=== PATIENT | female | born 1980 | race American Indian/Alaskan Native ===

== ENCOUNTER 2018-10-10 13:37 | Emergency (ER) | payer BC, MEDICAID, OTHER ==
--- NOTE | 2018-10-10 14:04 | Emergency Department Report ---
ED General Adult HPI - General Chief complaint: Upper Respiratory Infection Stated complaint: CHEST PAIN/HEADACHE Time Seen by Provider: 10/10/18 13:50 Source: patient Mode of arrival: Ambulatory Limitations: No Limitations - History of Present Illness Initial comments: Patient presents to the emergency department with chief complaint of cough 2 days that is nonproductive in nature. Patient states that she is having rib pain when coughing. Patient denies fever at home. -: Gradual Radiation: non-radiation Severity scale (0 -10): 4 Quality: aching Consistency: constant Improves with: none Worsens with: none Associated Symptoms: denies other symptoms Treatments Prior to Arrival: none - Related Data Home Medications Medication Instructions Recorded Confirmed Last Taken Triamter/Hctz 37.5-25 mg 1 tab PO QDAY 01/29/14 11/16/14 01/29/14 07:00 [Maxzide-25] amLODIPine [Norvasc] 2.5 mg PO QDAY 01/29/14 11/17/14 01/29/14 07:00 Labetalol [Normodyne] 200 mg PO BID 11/16/14 11/16/14 11/15/14 20:00 1 TAB Vit No.126/Iron/Folic 1 each PO QDAY 11/16/14 11/16/14 11/15/14 08:00 [Classic Tablet] 1 TAB glyBURIDE [Diabeta] 2.5 mg PO QHS 11/16/14 11/16/14 11/15/14 20:00 1 TAB Previous Rx's Medication Instructions Recorded Last Taken Type Cyclobenzaprine HCl [Flexeril] 10 mg PO Q8H PRN #21 tablet 01/29/14 Unknown Rx Ibuprofen [Motrin 800 MG tab] 800 mg PO Q8H PRN #21 tablet 01/29/14 Unknown Rx Ibuprofen [Motrin 800 MG tab] 800 mg PO TID PRN #21 tablet 04/22/14 Unknown Rx Promethazine [Phenergan] 25 mg PO Q6H PRN #15 tablet 04/22/14 Unknown Rx Acetaminophen/Codeine [Tylenol 1 tab PO Q6H PRN #30 tab 11/17/14 Unknown Rx /Codeine # 3 tab] Ferrous Sulfate [Feosol 325 MG tab] 325 mg PO BID #120 tablet 11/17/14 Unknown Rx Ibuprofen [Motrin 600 MG tab] 800 mg PO Q8H PRN #30 tablet 11/17/14 Unknown Rx Labetalol HCl [Trandate TAB] 300 mg PO BID #60 tablet 11/17/14 Unknown Rx Labetalol [Normodyne TAB] 300 mg PO BID PRN #60 tablet 11/17/14 Unknown Rx ALBUTEROL Inhaler(NF) [VENTOLIN 2 puff IH Q4HR PRN #1 inha 10/10/18 Unknown Rx Inhaler(NF)] guaiFENesin/CODEINE [Robitussin AC] 5 ml PO Q12HR PRN #180 oral.liqd 10/10/18 Unknown Rx predniSONE [Deltasone] 20 mg PO QDAY #15 tab 10/10/18 Unknown Rx traMADol [Ultram] 50 mg PO Q6HR PRN #20 tablet 10/10/18 Unknown Rx Allergies Allergy/AdvReac Type Severity Reaction Status Date / Time No Known Allergies Allergy Verified 04/21/14 20:07 ED Review of Systems ROS: Stated complaint: CHEST PAIN/HEADACHE Other details as noted in HPI Constitutional: denies: chills, fever Eyes: denies: eye pain, eye discharge, vision change ENT: denies: ear pain, throat pain Respiratory: cough. denies: shortness of breath, wheezing Cardiovascular: denies: chest pain, palpitations Endocrine: no symptoms reported Gastrointestinal: denies: abdominal pain, nausea, diarrhea Genitourinary: denies: urgency, dysuria, discharge Musculoskeletal: denies: back pain, joint swelling, arthralgia Skin: denies: rash, lesions Neurological: denies: headache, weakness, paresthesias Psychiatric: denies: anxiety, depression Hematological/Lymphatic: denies: easy bleeding, easy bruising ED Past Medical Hx - Past Medical History Hx Hypertension: Yes Hx Congestive Heart Failure: No Hx Diabetes: Yes Hx Deep Vein Thrombosis: No Hx Renal Disease: No Hx Sickle Cell Disease: No Hx Seizures: No Hx Asthma: No Hx COPD: No Hx HIV: No - Surgical History Past Surgical History?: No - Social History Smoking Status: Never Smoker Substance Use Type: None - Medications Home Medications: Home Medications Medication Instructions Recorded Confirmed Last Taken Type Cyclobenzaprine HCl [Flexeril] 10 mg PO Q8H PRN #21 tablet 01/29/14 11/17/14 Unknown Rx Ibuprofen [Motrin 800 MG tab] 800 mg PO Q8H PRN #21 tablet 01/29/14 11/16/14 Unknown Rx Triamter/Hctz 37.5-25 mg 1 tab PO QDAY 01/29/14 11/16/14 01/29/14 07:00 History [Maxzide-25] amLODIPine [Norvasc] 2.5 mg PO QDAY 01/29/14 11/17/14 01/29/14 07:00 History Ibuprofen [Motrin 800 MG tab] 800 mg PO TID PRN #21 tablet 04/22/14 11/17/14 Unknown Rx Promethazine [Phenergan] 25 mg PO Q6H PRN #15 tablet 04/22/14 11/17/14 Unknown Rx Labetalol [Normodyne] 200 mg PO BID 11/16/14 11/16/14 11/15/14 20:00 History 1 TAB Vit No.126/Iron/Folic 1 each PO QDAY 11/16/14 11/16/14 11/15/14 08:00 History [Classic Tablet] 1 TAB glyBURIDE [Diabeta] 2.5 mg PO QHS 11/16/14 11/16/14 11/15/14 20:00 History 1 TAB Acetaminophen/Codeine [Tylenol 1 tab PO Q6H PRN #30 tab 11/17/14 Unknown Rx /Codeine # 3 tab] Ferrous Sulfate [Feosol 325 MG tab] 325 mg PO BID #120 tablet 11/17/14 Unknown Rx Ibuprofen [Motrin 600 MG tab] 800 mg PO Q8H PRN #30 tablet 11/17/14 Unknown Rx Labetalol HCl [Trandate TAB] 300 mg PO BID #60 tablet 11/17/14 Unknown Rx Labetalol [Normodyne TAB] 300 mg PO BID PRN #60 tablet 11/17/14 Unknown Rx ALBUTEROL Inhaler(NF) [VENTOLIN 2 puff IH Q4HR PRN #1 inha 10/10/18 Unknown Rx Inhaler(NF)] guaiFENesin/CODEINE [Robitussin AC] 5 ml PO Q12HR PRN #180 oral.liqd 10/10/18 Unknown Rx predniSONE [Deltasone] 20 mg PO QDAY #15 tab 10/10/18 Unknown Rx traMADol [Ultram] 50 mg PO Q6HR PRN #20 tablet 10/10/18 Unknown Rx ED Physical Exam - General Limitations: No Limitations General appearance: alert, in no apparent distress - Head Head exam: Present: atraumatic, normocephalic - Eye Eye exam: Present: normal appearance - ENT ENT exam: Present: mucous membranes moist - Neck Neck exam: Present: normal inspection - Respiratory Respiratory exam: Present: normal lung sounds bilaterally, wheezes (mild on expiration). Absent: respiratory distress - Cardiovascular Cardiovascular Exam: Present: regular rate, normal rhythm. Absent: systolic murmur, diastolic murmur, rubs, gallop - GI/Abdominal GI/Abdominal exam: Present: soft, normal bowel sounds. Absent: distended, tenderness - Extremities Exam Extremities exam: Present: normal inspection - Back Exam Back exam: Present: normal inspection - Neurological Exam Neurological exam: Present: alert, oriented X3, CN II-XII intact. Absent: motor sensory deficit - Psychiatric Psychiatric exam: Present: normal affect, normal mood - Skin Skin exam: Present: warm, dry, intact, normal color. Absent: rash ED Course Vital Signs 10/10/18 13:40 Temperature 97.7 F Pulse Rate 89 Respiratory 18 Rate Blood Pressure 171/110 O2 Sat by Pulse 99 Oximetry ED Medical Decision Making - Medical Decision Making Discussed results Critical care attestation.: If time is entered above; I have spent that time in minutes in the direct care of this critically ill patient, excluding procedure time. ED Disposition Clinical Impression: Bronchitis Disposition: DC-01 TO HOME OR SELFCARE Is pt being admited?: No Does the pt Need Aspirin: No Condition: Stable Instructions: Acute Bronchitis (ED), Chronic Bronchitis (ED) Additional Instructions: return if worse Prescriptions: ALBUTEROL Inhaler(NF) [VENTOLIN Inhaler(NF)] 2 puff IH Q4HR PRN #1 inha PRN Reason: Shortness Of Breath guaiFENesin/CODEINE [Robitussin AC] 5 ml PO Q12HR PRN #180 oral.liqd PRN Reason: Cough predniSONE [Deltasone] 20 mg PO QDAY #15 tab traMADol [Ultram] 50 mg PO Q6HR PRN #20 tablet PRN Reason: Pain Referrals: [facility] [Provider Group] - 3-5 Days Forms: Work/School Release Form(ED) Time of Disposition: 14:03
== END 2018-10-10 14:15 | disposition home or self-care (01) ==
LOC: ED 13:37
CPT/HCPCS: 99282

== ENCOUNTER 2020-09-29 20:04 | Emergency (ER) | payer BC, OTHER ==
--- NOTE | 2020-09-29 20:19 | Emergency Department Report ---
Blank Doc - Documentation Documentation: 40 y/o female with untreated HTN (noncompliance) and dysglycemia presents c/o 4 days of coryza, sob, diffuse myalgia and 1 day of chest pain. Feels sick, feverish but no known contacts.
[2020-09-29] MEDS ORDERED: cloNIDine 0.2 MG TAB PO STA (20:20)
--- NOTE | 2020-09-29 22:11 | XRay Report ---
CHEST 2 VIEWS INDICATION / CLINICAL INFORMATION: cough and sob and cp. COMPARISON: 08/10/2008 FINDINGS: SUPPORT DEVICES: None. HEART / MEDIASTINUM: No significant abnormality. LUNGS / PLEURA: No significant pulmonary or pleural abnormality. No pneumothorax. ADDITIONAL FINDINGS: No significant additional findings. IMPRESSION: 1. No acute findings. No significant interval change. Signer Name: Luis Wiley MD Signed: 09/29/2020 10:07 PM Workstation Name: [id number]
[2020-09-29 22:30] VITALS: BP 125/81
--- NOTE | 2020-09-29 22:37 | Emergency Department Report ---
ED General Adult HPI - General Chief complaint: Pain General Stated complaint: BODYACHE/BACK AND CHEST PAIN Time Seen by Provider: 09/29/20 22:31 Source: patient Mode of arrival: Ambulatory Limitations: No Limitations - History of Present Illness Initial comments: 40 y/o female with untreated HTN (noncompliance) and dysglycemia presents c/o 4 days of coryza, sob, diffuse myalgia and 1 day of chest pain. Feels sick, feverish but no known contacts. Reports nasal congestion changes in smell and taste reports no hematuria no dysuria no diarrhea no constipation no hemoptysis no hematemesis no hematochezia Radiation: non-radiation Quality: aching, dull Consistency: constant Improves with: none Worsens with: none Associated Symptoms: cough, fever/chills (Chills), malaise, weakness. denies: confusion, chest pain, diaphoresis, nausea/vomiting, rash, seizure, shortness of breath, syncope - Related Data Home Medications Medication Instructions Recorded Confirmed Last Taken Triamter/Hctz 37.5-25 mg 1 tab PO QDAY 01/29/14 11/16/14 01/29/14 07:00 [Maxzide-25] amLODIPine 2.5 mg PO QDAY 01/29/14 11/17/14 01/29/14 07:00 Vit No.126/Iron/Folic 1 each PO QDAY 11/16/14 11/16/14 11/15/14 08:00 [Classic Tablet] 1 TAB glyBURIDE [Diabeta] 2.5 mg PO QHS 11/16/14 11/16/14 11/15/14 20:00 1 TAB labetaloL [Normodyne] 200 mg PO BID 11/16/14 11/16/14 11/15/14 20:00 1 TAB Previous Rx's Medication Instructions Recorded Last Taken Type Cyclobenzaprine HCl [Flexeril] 10 mg PO Q8H PRN #21 tablet 01/29/14 Unknown Rx Ibuprofen [Motrin 800 MG tab] 800 mg PO Q8H PRN #21 tablet 01/29/14 Unknown Rx Ibuprofen [Motrin 800 MG tab] 800 mg PO TID PRN #21 tablet 04/22/14 Unknown Rx Promethazine [Phenergan] 25 mg PO Q6H PRN #15 tablet 04/22/14 Unknown Rx Acetaminophen/Codeine [Tylenol 1 tab PO Q6H PRN #30 tab 11/17/14 Unknown Rx /Codeine # 3 tab] Ferrous Sulfate [Feosol 325 MG tab] 325 mg PO BID #120 tablet 11/17/14 Unknown Rx Ibuprofen [Motrin 600 MG tab] 800 mg PO Q8H PRN #30 tablet 11/17/14 Unknown Rx Labetalol HCl [Trandate TAB] 300 mg PO BID #60 tablet 11/17/14 Unknown Rx labetaloL [Labetalol 200mg TAB] 300 mg PO BID PRN #60 tablet 11/17/14 Unknown Rx ALBUTEROL Inhaler(NF) [VENTOLIN 2 puff IH Q4HR PRN #1 inha 10/10/18 Unknown Rx Inhaler(NF)] guaiFENesin/CODEINE [Robitussin AC] 5 ml PO Q12HR PRN #180 oral.liqd 10/10/18 Unknown Rx predniSONE [Deltasone] 20 mg PO QDAY #15 tab 10/10/18 Unknown Rx traMADoL [Ultram] 50 mg PO Q6HR PRN #20 tablet 10/10/18 Unknown Rx Albuterol Mdi (or & Nicu Only) 1 puff IH Q4-6H PRN #1 inha 09/29/20 Unknown Rx [ProAir HFA Inhaler] Albuterol Mdi (or & Nicu Only) 2 puff IH QID PRN #8.5 gram 09/29/20 Unknown Rx [ProAir HFA Inhaler] Benzonatate [Tessalon Perles] 100 mg PO Q8HR #20 capsule 09/29/20 Unknown Rx Benzonatate [Tessalon Perles] 100 mg PO Q8HR #30 capsule 09/29/20 Unknown Rx Triamter/Hctz 37.5-25 mg 1 tab PO QDAY #30 tablet 09/29/20 Unknown Rx [Maxzide-25] Allergies Allergy/AdvReac Type Severity Reaction Status Date / Time No Known Allergies Allergy Verified 04/21/14 20:07 ED Review of Systems ROS: Stated complaint: BODYACHE/BACK AND CHEST PAIN Other details as noted in HPI Comment: All other systems reviewed and negative ED Past Medical Hx - Past Medical History Previous Medical History?: Yes Hx Hypertension: Yes (not on meds.) Hx Congestive Heart Failure: No Hx Diabetes: Yes Hx Deep Vein Thrombosis: No Hx Renal Disease: No Hx Sickle Cell Disease: No Hx Seizures: No Hx Asthma: No Hx COPD: No Hx HIV: No - Surgical History Past Surgical History?: No - Social History Smoking Status: Never Smoker Substance Use Type: None - Medications Home Medications: Home Medications Medication Instructions Recorded Confirmed Last Taken Type Cyclobenzaprine HCl [Flexeril] 10 mg PO Q8H PRN #21 tablet 01/29/14 11/17/14 Unknown Rx Ibuprofen [Motrin 800 MG tab] 800 mg PO Q8H PRN #21 tablet 01/29/14 11/16/14 Unk nown Rx Triamter/Hctz 37.5-25 mg 1 tab PO QDAY 01/29/14 11/16/14 01/29/14 07:00 History [Maxzide-25] amLODIPine 2.5 mg PO QDAY 01/29/14 11/17/14 01/29/14 07:00 History Ibuprofen [Motrin 800 MG tab] 800 mg PO TID PRN #21 tablet 04/22/14 11/17/14 Unknown Rx Promethazine [Phenergan] 25 mg PO Q6H PRN #15 tablet 04/22/14 11/17/14 Unknown Rx Vit No.126/Iron/Folic 1 each PO QDAY 11/16/14 11/16/14 11/15/14 08:00 History [Classic Tablet] 1 TAB glyBURIDE [Diabeta] 2.5 mg PO QHS 11/16/14 11/16/14 11/15/14 20:00 History 1 TAB labetaloL [Normodyne] 200 mg PO BID 11/16/14 11/16/14 11/15/14 20:00 History 1 TAB Acetaminophen/Codeine [Tylenol 1 tab PO Q6H PRN #30 tab 11/17/14 Unknown Rx /Codeine # 3 tab] Ferrous Sulfate [Feosol 325 MG tab] 325 mg PO BID #120 tablet 11/17/14 Unknown Rx Ibuprofen [Motrin 600 MG tab] 800 mg PO Q8H PRN #30 tablet 11/17/14 Unknown Rx Labetalol HCl [Trandate TAB] 300 mg PO BID #60 tablet 11/17/14 Unknown Rx labetaloL [Labetalol 200mg TAB] 300 mg PO BID PRN #60 tablet 11/17/14 Unknown Rx ALBUTEROL Inhaler(NF) [VENTOLIN 2 puff IH Q4HR PRN #1 inha 10/10/18 Unknown Rx Inhaler(NF)] guaiFENesin/CODEINE [Robitussin AC] 5 ml PO Q12HR PRN #180 oral.liqd 10/10/18 Unknown Rx predniSONE [Deltasone] 20 mg PO QDAY #15 tab 10/10/18 Unknown Rx traMADoL [Ultram] 50 mg PO Q6HR PRN #20 tablet 10/10/18 Unknown Rx Albuterol Mdi (or & Nicu Only) 1 puff IH Q4-6H PRN #1 inha 09/29/20 Unknown Rx [ProAir HFA Inhaler] Albuterol Mdi (or & Nicu Only) 2 puff IH QID PRN #8.5 gram 09/29/20 Unknown Rx [ProAir HFA Inhaler] Benzonatate [Tessalon Perles] 100 mg PO Q8HR #20 capsule 09/29/20 Unknown Rx Benzonatate [Tessalon Perles] 100 mg PO Q8HR #30 capsule 09/29/20 Unknown Rx Triamter/Hctz 37.5-25 mg 1 tab PO QDAY #30 tablet 09/29/20 Unknown Rx [Maxzide-25] ED Physical Exam - General Limitations: No Limitations General appearance: alert, in no apparent distress - Head Head exam: Present: atraumatic, normocephalic - Eye Eye exam: Present: normal appearance - ENT ENT exam: Present: mucous membranes moist, other (Nasal congestion) - Neck Neck exam: Present: normal inspection, full ROM. Absent: meningismus, lymphadenopathy, thyromegaly - Respiratory Respiratory exam: Present: normal lung sounds bilaterally. Absent: respiratory distress, rales, rhonchi, accessory muscle use, decreased breath sounds - Cardiovascular Cardiovascular Exam: Present: regular rate, normal rhythm. Absent: systolic murmur, diastolic murmur, rubs, gallop - GI/Abdominal GI/Abdominal exam: Present: soft, normal bowel sounds - Extremities Exam Extremities exam: Present: normal inspection - Back Exam Back exam: Present: normal inspection - Neurological Exam Neurological exam: Present: alert, oriented X3 - Psychiatric Psychiatric exam: Present: normal affect, normal mood - Skin Skin exam: Present: warm, dry, intact, normal color. Absent: rash ED Course Vital Signs 09/29/20 09/29/20 09/29/20 20:15 20:47 20:48 Temperature 98.0 F Pulse Rate 89 86 81 Respiratory 18 Rate Blood Pressure 188/120 187/109 187/109 Blood Pressure [Right] O2 Sat by Pulse 99 100 Oximetry 09/29/20 22:29 Temperature Pulse Rate 72 Respiratory Rate Blood Pressure Blood Pressure 125/81 [Right] O2 Sat by Pulse Oximetry ED Medical Decision Making - Radiology Data Radiology results: report reviewed Referring Physician:YESENIA BOWERSPatient Name:CHERYLE SPENCERatient ID:[id number] of :[id number]:FemaleAccession:[id number] Date:[id number] Status:[place] [address] XRay Report Signed Patient: CHERYLE ABEL MR#: [id number] : 1980 Acct:[id number] Age/Sex: 40 / F ADM Date: 09/29/20 Loc: ED Attending Dr: Ordering Physician: PETERSON RIZZO Date of Service: 09/29/20 Procedure(s): XR chest routine 2V Accession Number(s): [id number] cc: PETERSON RIZZO Fluoro Time In Minutes: CHEST 2 VIEWS INDICATION / CLINICAL INFORMATION: cough and sob and cp. COMPARISON: 08/10/2008 FINDINGS: SUPPORT DEVICES: None. HEART / MEDIASTINUM: No significant abnormality. LUNGS / PLEURA: No significant pulmonary or pleural abnormality. No pneumothorax. ADDITIONAL FINDINGS: No significant additional findings. IMPRESSION: 1. No acute findings. No significant interval change. Signer Name: Luis Butler MD Signed: 09/29/2020 10:07 PM Workstation Name: [id number] Transcribed By: Dictated By: LUIS BUTLER Electronically Authenticated By: LUIS BUTLER Signed Date/Time: 09/29/202206 DD/ 05 TD/TT: - Medical Decision Making This patient presents with acute cough, most consistent with viral syndrome. Differential diagnosis includes bronchitis, asthma, hyperreactive airway disease, pneumonia. Presentation not consistent with acute bacterial pneumonia, influenza, asthma, transient airway hyperresponsiveness. Presentation not consistent with chronic causes of cough (including GERD, asthma, postnasal discharge, medication side effect, CHF, lung cancer or mass). Plan: , supportive care, reassess Critical care attestation.: If time is entered above; I have spent that time in minutes in the direct care of this critically ill patient, excluding procedure time. ED Disposition Clinical Impression: Cough, Viral syndrome, HTN (hypertension) Disposition: TO HOME OR SELFCARE Is pt being admited?: No Does the pt Need Aspirin: No Condition: Stable Instructions: Cool Mist Vaporizer, COVID-19 Frequently Asked Questions, Cough, Adult, [id number], Viral Respiratory Infection, [id number], COVID-19, Hand Washing, Hypertension (ED), Hypertension, Adult, [id number] Additional Instructions: Be sure to maintain compliance with your hypertensive medication that showed good response to treatment in the emergency department you have been restarted on a previous medication that you are taking until you are able to follow-up with a primary care provider for an extended prescription. As we discussed also it is in your interest to obtain a COVID-19 test based on your symptoms and findings on today's examination Prescriptions: Triamter/Hctz 37.5-25 mg [Maxzide-25] 1 tab PO QDAY #30 tablet Albuterol Mdi (or & Nicu Only) [ProAir HFA Inhaler] 1 puff IH Q4-6H PRN #1 inha PRN Reason: Cough Albuterol Mdi (or & Nicu Only) [ProAir HFA Inhaler] 2 puff IH QID PRN #8.5 gram PRN Reason: Shortness Of Breath Benzonatate [Tessalon Perles] 100 mg PO Q8HR #20 capsule Benzonatate [Tessalon Perles] 100 mg PO Q8HR #30 capsule Referrals: PRIMARY CARE, [Primary Care Provider] - 3-5 Days [facility] [Provider Group] - 3-5 Days
== END 2020-09-29 23:25 | disposition home or self-care (01) ==
LOC: ED 20:04
DX: B34.9 Viral infection, unspecified (principal); I10 Essential (primary) hypertension; E11.9 Type 2 diabetes mellitus without complications; Z79.899 Other long term (current) drug therapy
CPT/HCPCS: 71046; 99283